=== PATIENT | female | born 1995 | race Caucasian/White ===

== ENCOUNTER 2018-10-24 22:13 | Emergency (ER) | payer OTHER ==
[2018-10-24 22:44] VITALS: BMI 32.9
[2018-10-24 23:05] LABS: URINE BILIRUBIN NEGATIVE (NEGATIVE); URINE BLOOD NEGATIVE (NEGATIVE); URINE CLARITY Clear (Clear); URINE COLOR Yellow (YELLOW); URINE GLUCOSE (UA) NORMAL (Normal); URINE LEUKOCYTE ESTERASE NEG Leu/uL (Negative); URINE PROTEIN NEGATIVE (NEGATIVE); URINE UROBILINOGEN NORMAL mg/dL (0.2-1.0)
--- NOTE | 2018-10-25 00:36 | OBHP ---
Datetime: 10/24/2018 23:45 IP Adm Impression: Term, intrauterine ; No Active Labor; Intact Membranes IP Chief Complaint Other: Something coming from vagina IP Admit Plan: Discharge home Admit Comment, IP Provider: 23 yo female G1 with an IUP t 38.4 weeks and presented to L_D with c/o o f feeling about 1/2 cm piece of tissue protruding from her vagina, not painful. Denies any urinary c/ o's and admits to adequte FM. Also deies LOF, VB or VD. PMHx and PSHx Negative Meds PNV and Vit D NKDA Social Hx Denies x 3 PE as noted above A/P Term Not in labor No SROM or VB Slightly prominent Anterior vaginal wall near her introitus. Non-tender NST reactive Pt reassured and labor precautions reviewed with her and verbalized understanding Dr. Siu notified and request to discharge patient and to come on 10/26 at 7 AM to be re-examine d Discharged home in Stable and Satisfactory condition Pelvic Type - PN: Adequate Extremities - PN: Normal Abdomen - PN: Normal Back - PN: Normal Breast - PN: Not Done Lungs - PN: Normal Heart - PN: Normal Thyroid - PN: Normal Neurologic - PN: Normal HEENT - PN: Normal General - PN: Normal Presentation-Admit: Vertex FHR - Baseline A Provider: 130 Membranes, Provider: Intact Contraction Comments Provider: Irregular Comments, ACOG Physical Exam: + Prominent Anterior Vaginal wall slightly bulging, palpated near her introitus but nothing protruding from the vagina while supine. Non-tender Gestation - Est Wks by US: 38.4 EGA AdmitDate IP: 38.3 Vital Signs Provider: Reviewed IP Chief Complaint: Maternal discomfort NICHD Variability Prov Fetus A: Moderate 6-25bpm NICHD Accel Fetus A IP Provider: 10X10 FHR Category Provider Fetus A: Category I NICHD Decel Fetus A IP Provider: None Dilatation, Provider: 2 Effacement, Provider: 70 Station, Provider: -3 Genitourinary Exam: Normal DTRs - PN: Normal
--- NOTE | 2018-10-25 00:40 | OBDCSUM ---
Datetime: 10/25/2018 00:21 Discharged to, Provider: Home Follow up at, Provider: Dr. Siu Disch Instr Activity: Normal activity; Bedrest; May be up to bathroom Disch Instr Diet: Regular Discharge Instructions, Provider: Routine instructions given Discharge Time: 10/25/2018 00:21 Follow up in weeks, Provider: 2 days Disch Referrals: None Contraception discussed, Prov: Yes Disch Activity Restrictions: No exercising; No lifting; Minimize stair-climbing; No sexual activity Discharge Comment, Provider: 23 yo female G1 with an IUP t 38.4 weeks and presented to L_D with c/o of feeling about 1/2 cm piece of tissue protruding from her vagina, not painful. Denies any urinary c /o's and admits to adequte FM. Also deies LOF, VB or VD. PMHx and PSHx Negative Meds PNV and Vit D NKDA Social Hx Denies x 3 PE as noted above A/P Term Not in labor No SROM or VB Slightly prominent Anterior vaginal wall near her introitus. Non-tender NST reactive Pt reassured and labor precautions reviewed with her and verbalized understanding Dr. Siu notified and request to discharge patient and to come on 10/26 at 7 AM to be re-examine d and for NST Discharged home in Stable and Satisfactory condition Discharge Diagnosis Prov Other: Irregular contractions Not in labor Slightly prominent Anterior vaginal wall Contraception after Delivery: Undecided
[2018-10-25 04:59] VITALS: BP 114/78; PULSE 85; RESP 20; TEMP 97.5
== END 2018-10-25 00:25 | disposition home or self-care (01) ==
LOC: C.EROB 22:13
DX: O26.893 Other specified pregnancy related conditions, third trimester (principal); Z3A.38 38 weeks gestation of pregnancy

== ENCOUNTER 2018-10-26 07:26 | Inpatient (IN) | payer OTHER ==
[2018-10-26 07:26] VITALS: BMI 33.3
[~2018-10-26 07:26] MED LIST: Penicillin G 5 Million Unit Vial IVPB ONE
[2018-10-26] MEDS ORDERED: Lactated Ringer's 1,000 ML IV SCH ×2 (07:30→08:00)
[2018-10-26] MEDS ORDERED: Penicillin G 5 Million Unit Vial IVPB ONE (08:26)
[2018-10-26 08:30] LABS: BASO % 0.5 % (0.0-2.0); EOS # 0.1 K/uL (0.0-0.7); EOS % 0.6 % (0.0-4.0); HEMOGLOBIN 12.9 g/dL (11.0-16.0); LYMPH # 3.5 K/uL (1.0-4.3); LYMPH % 33.9 % (20.0-40.0); MEAN CELL VOLUME 84.7 fL (81.0-99.0); MEAN CORPUSCULAR HEMOGLOBIN 27.6 pg (27.0-31.0); MEAN CORPUSCULAR HGB CONC 32.5 g/dL (33.0-37.0); MEAN PLATELET VOLUME 11.6 fL (7.2-11.7); MONO # 0.8 K/uL (0.0-0.8); MONO % 7.3 % (0.0-10.0); NEUT % 57.7 % (50.0-75.0); RBC 4.69 Mil/uL (3.80-5.20); RED CELL DISTRIBUTION WIDTH 13.6 % (11.5-14.5); WHITE BLOOD COUNT 10.3 K/uL (4.8-10.8)
[2018-10-26 08:33] LABS: SQUAMOUS EPITHIAL 1 /hpf (0-5); URINE BILIRUBIN NEGATIVE (NEGATIVE); URINE BLOOD NEGATIVE (NEGATIVE); URINE CLARITY Clear (Clear); URINE COLOR Straw (YELLOW); URINE GLUCOSE (UA) NORMAL (Normal); URINE LEUKOCYTE ESTERASE NEG Leu/uL (Negative); URINE PROTEIN NEGATIVE (NEGATIVE); URINE UROBILINOGEN NORMAL mg/dL (0.2-1.0)
[2018-10-26 09:02] LABS: ALB/GLOB RATIO 1.2 (1.0-2.1); ALBUMIN 3.5 g/dL (3.5-5.0); ALT/SGPT 34 U/L (9-52); AST/SGOT 29 U/L (14-36); BLOOD UREA NITROGEN 9 mg/dL (7-17); CALCIUM 9.1 mg/dl (8.6-10.4); GFR NON-AFRICAN AMERICAN > 60
[2018-10-26] MEDS ORDERED: Fentanyl/Bupivacaine HCl 250 ML EPI ONE (11:51)
[2018-10-26] MEDS ORDERED: Oxytocin 30 UNIT 30 UNITS/500 ML BAG IV ONE ×2 (13:42→13:46)
--- NOTE | 2018-10-26 13:43 | OBPN ---
Datetime: 10/26/2018 13:40 IP Progress Impression: Normal progression of labor IP Procedures: Artificial ROM; Sterile Vag Exam FHR - Baseline A Provider: 130 IP Progress Note Comment: pt wa examined at bed side ve 4/100/-1 arom clear start pitocin anticipaye bnsvd xcont gbs prohylaxsis NICHD Accel Fetus A IP Provider: 15X15 FHR Category Provider Fetus A: Category I NICHD Variability Prov Fetus A: Moderate 6-25bpm Dilatation, Provider: 4 Effacement, Provider: 100 Station, Provider: -1 Datetime: 10/24/2018 23:45 Membranes, Provider: Intact Contraction Comments Provider: Irregular Gestation - Est Wks by US: 38.4 Presentation-Admit: Vertex Vital Signs Provider: Reviewed NICHD Decel Fetus A IP Provider: None
[2018-10-26] MEDS ORDERED: Benzocaine/Menthol 20%-0.5% Topical Spray (60 ml) TOP PRN (18:06)
[2018-10-26] MEDS ORDERED: Oxycodone/Acetaminophen 5/325 mg Tab PO PRN ×2 (18:06)
--- NOTE | 2018-10-26 18:08 | OBDS ---
DELIVERY PERSONNEL Delivery Doctor: Segundo Siu MD Telemarketing Fundraiser: Rosa Maria Costa RN Anesthesiologist: luis alberto MATERNAL INFORMATION Delivery Anesthesia: Epidural Medications in Delivery: pitocin 20 Estimated Blood Loss (ml): 400 Placenta Cultured: No Maternal Complications: None Provider Comments: dr siu baby deliverd in [place] with vaccum. agasr 05/08 pead presemnt at time of delicvery cord gas send no com LABOR SUMMARY EDC: 11/04/2018 00:00 No. Babies in Womb: 1 Attempted: No Labor Anesthesia: Epidural LABOR INFORMATION Onset of Labor: 10/26/2018 12:00 Complete Dilatation: 10/26/2018 17:36 Cervical Ripening Agents: Cytotec @ (Annotations: 25 vaginally) Oxytocin: Augmentation Group B Beta Strep: Positive (Annotations: 10/06/2018) Antibiotics # of Doses: 3 Antibiotics Time of Last Dose: 1630 MEMBRANES Membranes Rupture Method: Artificial Rupture of Membranes: 10/26/2018 13:41 Length of Rupture (hrs): 4.12 Amniotic Fluid Color: Clear Amniotic Fluid Amount: Moderate Amniotic Fluid Odor: Normal STAGES OF LABOR Stage 1 hrs: 5 Stage 1 min: 36 Stage 2 hrs: 0 Stage 2 min: 12 Stage 3 hrs: 0 Stage 3 min: 7 Total Time in Labor hrs: 5 Total Time in Labor min: 55 VAGINAL DELIVERY Episiotomy: None Laceration Extension: Second Degree Laceration Type: Perineal Laceration Repair Note: repaired 2 vircyl Initial Vag Sponge Count: 10 Final Vag Sponge Count: 10 Initial Vag Sharps Count: 1 Final Vag Sharps Count: 1 Sponge Count Correct: Yes Sharps Count Correct: Yes BABY A INFORMATION Infant Delivery Date/Time: 10/26/2018 17:48 Method of Delivery: Vaginal Born in Route : No : N/A Forceps: N/A Vacuum Extraction: Successful Shoulder Dystocia : No ASSISTED DELIVERY BABY A Indication for Assisted Delivery: non ressuring tracing Catheter Prior to Procedure: Yes Station Vacuum/Forcep Apply: +3 Position Vacuum/Forcep Apply: Left Occipital Anterior Vacuum Number of Pulls: 2 Vacuum Number of PopOffs: 1 Vacuum Maximum Pressure Obtained: 40 Reduce Pressure btwn Ctx: No Vacuum Disk Operator: kiwi Total Time Vacuum Applied: 40 sec Vacuum/Forceps Comment: vaccum used for badry cardia. vaccum applied for 40 sec.2 puls. 2 nd laceration no com SHOULDER DYSTOCIA BABY A Delivery Date/Time: 10/26/2018 17:48 PRESENTATION/POSITION BABY A Presentation: Cephalic Cephalic Presentation: Vertex Breech Presentation: N/A PLACENTA INFORMATION BABY A Placenta Delivery Time : 10/26/2018 17:55 Placenta Method of Delivery: Spontaneous Placenta Status: Delivered SCORES BABY A Heart Rate 1 min: >100 bpm Resp Effort 1 min: Good Cry Reflex Irritability 1 min: Cough or Sneeze or Pulls Away Muscle Tone 1 min: Active Motion Color 1 min: Body [place], Extremities Blue Resuscitation Effort 1 min: Tactile Stimulation SCORE 1 MIN: 9 Heart Rate 5 min: >100 bpm Resp Effort 5 min: Good Cry Reflex Irritability 5 min: Cough or Sneeze or Pulls Away Muscle Tone 5 min: Active Motion Color 5 min: Body [place], Extremities Blue SCORE 5 MIN: 9 INFORMATION BABY A Gestational Age at Delivery: 38.6 Gestational Status: Term Infant Outcome : Liveborn Infant Condition : Stable Sex: Male IDENTIFICATION/MEDS BABY A ID Band Number: [id number] ID Band Location: Left Leg; Left Arm Sensor Applied: Yes Sensor Number: [id number] Sensor Location : Cord Clamp WEIGHT/LENGTH BABY A Infant Birthweight (gms): 3070 Infant Weight (lb): 6 Weight (oz): 12 Length Inches: 20.00 Length cms: 50.8 CORD INFORMATION BABY A No. Cord Vessels: 3 Nuchal Cord : N/A Cord Blood Taken: Yes Infant Suction: Mouth; Nose ASSESSMENT BABY A Infant Complications: None Physical Findings at Delivery: Within Normal Limits Infant Respirations: Appears Normal Air Grinder/ALS Called : No Infant Care By: dr brar Transferred To: Remains with Mother
--- NOTE | 2018-10-27 06:10 | OBPPN ---
Datetime: 10/27/2018 06:05 PP Pain Prov: Within normal limits PP Nausea Prov: Denies PP Flatus Prov: Yes PP Abdomen/Uterus Prov: Normal PP Lochia Prov: Normal PP Extremities Prov: Normal PP Impression Prov: Normal progression PP Plan Prov: Continue present management PP Progress Note Prov: pt was seen at ed side, painj under cobtrol, no n/v, toleraying deit, vooid ing, in lochia ppd#1 s/p cont pp casre cont pain manag cbc Vital Signs Provider PP: Reviewed; Within Normal Limits
[2018-10-27 08:40] LABS: BASO % 0.3 % (0.0-2.0); EOS # 0.1 K/uL (0.0-0.7); EOS % 0.6 % (0.0-4.0); HEMOGLOBIN 11.1 g/dL (11.0-16.0); LYMPH # 2.6 K/uL (1.0-4.3); LYMPH % 18.3 % (20.0-40.0); MEAN CELL VOLUME 86.2 fL (81.0-99.0); MEAN CORPUSCULAR HGB CONC 32.4 g/dL (33.0-37.0); MEAN PLATELET VOLUME 10.6 fL (7.2-11.7); MONO # 1.3 K/uL (0.0-0.8); MONO % 9.4 % (0.0-10.0); NEUT % 71.4 % (50.0-75.0); RBC 3.98 Mil/uL (3.80-5.20); RED CELL DISTRIBUTION WIDTH 13.7 % (11.5-14.5)
--- NOTE | 2018-10-27 15:33 | OBPN ---
Datetime: 10/26/2018 08:57 IP Progress Impression: Normal progression of labor IP Procedures: Sterile Vag Exam IP Progress Plan: Cervical Ripening Contraction Comments Provider: irrg FHR - Baseline A Provider: 130 IP Progress Note Comment: pt was examined at bed side ve 3/80/-2 cytotec placed anticipate Vital Signs Provider: Reviewed; Within Normal Limits NICHD Accel Fetus A IP Provider: 15X15 FHR Category Provider Fetus A: Category I NICHD Variability Prov Fetus A: Moderate 6-25bpm Dilatation, Provider: 3 Effacement, Provider: 70 Station, Provider: -2
[2018-10-28 09:16] VITALS: BP 110/70; PULSE 89; RESP 18; TEMP 97.1; O2SAT 99
[2018-10-28] MEDS ORDERED: Measles, Mumps, and Rubella 0.5 ML VIAL SC ONE (13:25)
== END 2018-10-28 16:00 | disposition home or self-care (01) | DRG 373 ==
LOC: C.4D 07:26 → UNDOADMIN 07:26 → C.4M 20:35
PROVIDERS: ADMIT Obstetrics & Gynecology; ATTEND Obstetrics & Gynecology
PROC: 10D07Z6 Extraction of Products of Conception, Vacuum, Via Natural or Artificial Opening (ICD-10-PCS; principal; 2018-10-26)
PROC: 3E0P7VZ Introduction of Hormone into Female Reproductive, Via Natural or Artificial Opening (ICD-10-PCS; 2018-10-26)
PROC: 0KQM0ZZ Repair Perineum Muscle, Open Approach (ICD-10-PCS; 2018-10-26)
PROC: 10907ZC Drainage of Amniotic Fluid, Therapeutic from Products of Conception, Via Natural or Artificial Opening (ICD-10-PCS; 2018-10-26)
DX: O76 Abnormality in fetal heart rate and rhythm complicating labor and delivery (principal); O99.824 Streptococcus B carrier state complicating childbirth; O70.1 Second degree perineal laceration during delivery; Z3A.38 38 weeks gestation of pregnancy; Z37.0 Single live birth